=== PATIENT | male | born 1970 | race Caucasian/White ===

== ENCOUNTER → 2016-08-15 | Outpatient (CLI) | payer OTHER ==
--- NOTE | 2016-08-15 16:20 | REP ---
Bilateral inguinal sonography: History: Question inguinal hernia. Findings: The inguinal canal and inguinal soft-tissue ultrasound are performed bilaterally with and without Valsalva. Small hernias containing mesenteric fat are felt to be present bilaterally. These reduce with respiration. The right-sided inguinal canal increases from 9.5 to 12 mm with Valsalva. The left-sided canal increases from 7 to 9. Impression: Findings consistent with very small bilateral inguinal hernias containing abdominal fat. Reducible. No adenopathy cyst or mass seen. Signed by Robert Turcios MD 08/15/2016 07:29 P
--- NOTE | 2016-08-15 16:24 | REP ---
Scrotal sonography: History: 2 cm firm mass in the superior left scrotum. Findings: There is no evidence of intratesticular mass on either side. Right testis measures 4.3 x 2.3 x 3.1 cm. The left testis measures 3.9 x 2.2 x 3.5 cm. There are multiple left-sided epididymal cysts, the largest of which is fairly large measuring of 5.0 x 3.5 x 5.5 cm. There is a intratesticular cyst at the lower pole on the left measuring 0.2 cm in greatest diameter. No hydrocele is seen. Doppler flow is normal to both testes. Resistive index on the right is 0.58 and that on the left as 0.500. Impression: 5.5 cm epididymal cyst in the left epididymis. No other significant abnormality. Signed by Robert Turcios MD 08/15/2016 07:29 P
== END | disposition home or self-care (01) ==
LOC: M RAD 14:57
PROVIDERS: ATTEND Family Medicine
DX: N50.3 Cyst of epididymis (principal); K40.90 Unilateral inguinal hernia, without obstruction or gangrene, not specified as recurrent

== ENCOUNTER → 2016-08-16 | Outpatient (REF) | payer OTHER ==
[2016-08-16 19:25] LABS: ANION GAP 7 MEQ/L (8-16); BLOOD UREA NITROGEN 20 MG/DL (7-18); CALCIUM LEVEL 8.8 MG/DL (8.5-10.1); CARBON DIOXIDE LEVEL 29 MEQ/L (21-32); CHLORIDE LEVEL 107 MEQ/L (98-107); CHOLESTEROL LEVEL 229 MG/DL (<200); CREATININE FOR GFR 1.18 MG/DL (0.70-1.30); GLOMERULAR FILTRATION RATE > 60.0 (>60); GLUCOSE, FASTING 94 MG/DL (70-105); POTASSIUM SERUM 4.7 MEQ/L (3.5-5.1); SODIUM LEVEL 143 MEQ/L (136-145); TRIGLYCERIDES LEVEL 186 MG/DL (<150)
== END | disposition home or self-care (01) ==
LOC: M SFHCLERA 09:10
PROVIDERS: ATTEND Family Medicine
DX: Z00.00 Encounter for general adult medical examination without abnormal findings (principal)

== ENCOUNTER → 2016-08-22 | Outpatient (REF) | payer OTHER | END | disposition home or self-care (01) | LOC: M SFHCPLAZ 11:26 | PROVIDERS: ATTEND Family Medicine | DX: L72.0 Epidermal cyst (principal) ==

== ENCOUNTER → 2016-08-29 | Outpatient (REF) | payer OTHER ==
[~2016-08-29] MED LIST: BACT800T5 PO; FLUT1LOT EX; FLUTISP; NAPR500T2 PO; PERCOCET PO; TERB250T57 PO
[2016-08-29 11:43] LABS: MEAN CORPUSCULAR HEMOGLOBIN 30.7 pg (27.0-33.0); MEAN CORPUSCULAR HGB CONC 33.3 g/dl (32.0-36.5); MEAN CORPUSCULAR VOLUME 92.2 fl (80.0-96.0); RED CELL DISTRIBUTION WIDTH 12.3 % (11.5-14.5); WHITE BLOOD COUNT 4.3 K/mm3 (4.0-10.0)
[2016-08-29 11:45] LABS: INR 0.95
[2016-08-29 12:00] LABS: ANION GAP 9 MEQ/L (8-16); BLOOD UREA NITROGEN 14 MG/DL (7-18); CALCIUM LEVEL 8.9 MG/DL (8.5-10.1); CARBON DIOXIDE LEVEL 28 MEQ/L (21-32); CHLORIDE LEVEL 104 MEQ/L (98-107); CREATININE FOR GFR 1.19 MG/DL (0.70-1.30); GLOMERULAR FILTRATION RATE > 60.0 (>60); GLUCOSE, FASTING 112 MG/DL (70-105); POTASSIUM SERUM 4.3 MEQ/L (3.5-5.1); SODIUM LEVEL 141 MEQ/L (136-145)
== END | disposition home or self-care (01) ==
LOC: M LABSMT 11:09
PROVIDERS: ATTEND Nurse Practitioner Women's Health
DX: Z01.812 Encounter for preprocedural laboratory examination (principal); N50.3 Cyst of epididymis

== ENCOUNTER → 2016-09-02 | Day surgery (SDC) | payer OTHER ==
[~2016-09-02] VITALS: Ht 175.3 cm; Wt 82.6 kg
[~2016-09-02] MED LIST changes: +BACTRIM 160MG/800MG DS TAB PO SCH; +BUPIVACAINE HCL 0.25% 30 ML VIAL As Ordered ONE; +BUPIVACAINE HCL 0.25% 30 ML VIAL XX ONE; +KETOROLAC 60 MG/2 ML VIAL (J1885) As Ordered ONE; +LIDOCAINE 2% INJ 100 MG/5 ML SDV (FOR ANES.) As Ordered ONE; +LR 1,000 ML IV SCH; +MIDAZOLAM INJ 2 MG/2 ML VIAL (J2250) As Ordered ONE; +ONDANSETRON 4MG/2ML VIAL (J2405) As Ordered ONE; +ONDANSETRON 4MG/2ML VIAL (J2405) IV PRN; +PERCOCET 5MG/325MG TAB PO PRN; +PROPOFOL 200 MG/20 ML VIAL As Ordered ONE; +fentaNYL 100 MCG/2 ML INJECTION (J3010) As Ordered ONE; +fentaNYL 100 MCG/2 ML INJECTION (J3010) IV PRN
[2016-09-02 14:56] VITALS: BP 124/78
--- NOTE | 2016-09-03 04:36 | RO ---
DATE OF PROCEDURE: 09/02/2016 PREOPERATIVE DIAGNOSIS: Left epididymal cyst. POSTOPERATIVE DIAGNOSIS: Left epididymal cyst, plus hydrocele. SURGERY PERFORMED: Left hydrocele repair, plus excision of left epididymal cyst. SURGEON: Uday Forde MD PULL WORKER: None. ANESTHESIA: General. FINDINGS: Left hydrocele, plus left epididymal cyst. COMPLICATIONS: None. ESTIMATED BLOOD LOSS: N/A. HISTORY OF PRESENT ILLNESS: 46-year-old male patient with a left epididymal cyst on ultrasound and on palpation. The patient actually has consented for a left epididymal cyst excision. PROCEDURE DESCRIPTION: With patient under general anesthesia in supine position after prepping and draping the area of concern, which included the entire genitalia and abdomen, we started by doing an incision with a cold knife #15 blade. A transverse incision in the left hemiscrotal sac for about 4 cm in length. Through this incision with electric Bovie cautery, we opened the scrotal wall on the left hemiscrotal sac. We then preceded to actually open longitudinally the tunic vaginalis and then actively extracted the fluid. The patient had some hydrocele of about 50 mL. We then preceded to avert the tunic vaginalis to prevent the recurrence of hydrocele with #3-0 chromic in a running fashion. We then preceded to actively dissect the epididymal cyst. It was a very large cyst of about 7 cm in diameter. For this reason, we actively dissected with cuticle scissors and the cyst was excised completely and sent for permanent pathology analysis. We fulgurated the bleeding vessels and placed Marcaine 0.25%, lidocaine 2%, a total of 5 mL in the spermatic cord and dropped the kidney inside the scrotal sac. We closed the scrotal sac and scrotal wall in two layers with #3-0 chromic in a running fashion. The scrotal skin also with #3-0 chromic in a running fashion. We applied bacitracin cream, plus scrotal support. PLAN: The patient will go home today with antibiotic, pain medication. Followup at [facility] in about 2 weeks. DEMETRIUS
== END | disposition home or self-care (01) ==
LOC: M SDC 10:23
PROVIDERS: ATTEND Urology
DX: N50.3 Cyst of epididymis (principal); N43.3 Hydrocele, unspecified; K21.9 Gastro-esophageal reflux disease without esophagitis; Z79.899 Other long term (current) drug therapy
CPT/HCPCS: 54840; 55060; 88305; J0690; J1885; J2250; J2405; J3010

== ENCOUNTER → 2016-09-04 | Outpatient (REF) | payer OTHER ==
[~2016-09-04] MED LIST changes: -BACTRIM 160MG/800MG DS TAB PO SCH; -BUPIVACAINE HCL 0.25% 30 ML VIAL As Ordered ONE; -BUPIVACAINE HCL 0.25% 30 ML VIAL XX ONE; -KETOROLAC 60 MG/2 ML VIAL (J1885) As Ordered ONE; -LIDOCAINE 2% INJ 100 MG/5 ML SDV (FOR ANES.) As Ordered ONE; -LR 1,000 ML IV SCH; -MIDAZOLAM INJ 2 MG/2 ML VIAL (J2250) As Ordered ONE; -ONDANSETRON 4MG/2ML VIAL (J2405) As Ordered ONE; -ONDANSETRON 4MG/2ML VIAL (J2405) IV PRN; -PERCOCET 5MG/325MG TAB PO PRN; -PROPOFOL 200 MG/20 ML VIAL As Ordered ONE; -fentaNYL 100 MCG/2 ML INJECTION (J3010) As Ordered ONE; -fentaNYL 100 MCG/2 ML INJECTION (J3010) IV PRN
== END ==
LOC: M SFHCPLAZ 15:44
PROVIDERS: ATTEND Dermatology
DX: L82.1 Other seborrheic keratosis (principal)

== ENCOUNTER → 2016-09-29 | Outpatient (REF) | payer OTHER | LOC: M SFHCLERA 12:41 | PROVIDERS: ATTEND Nurse Practitioner Family | DX: Z53.8 Procedure and treatment not carried out for other reasons (principal) ==

== ENCOUNTER 2018-04-23 20:46 | Emergency (ER) | payer BC, MEDICAID, OTHER | END 2018-04-24 00:19 | disposition left against medical advice (07) | LOC: M ED 04-24 00:19 | DX: R55 Syncope and collapse (principal); Z53.21 Procedure and treatment not carried out due to patient leaving prior to being seen by health care provider ==

== ENCOUNTER → 2018-08-25 | Outpatient (CLI) | payer BC, OTHER ==
[~2018-08-25] MED LIST changes: +NAPR-885 PO; -NAPR500T2 PO; +TERB250T12 PO; -TERB250T57 PO
--- NOTE | 2018-08-25 13:11 | REP ---
Right knee five views : There is no fracture or dislocation. Mineralization and joint spaces are normal. There are no calcifications or foreign bodies. Impression: Negative right knee . Electronically Signed by Ranulfo Eddy MD 08/25/2018 01:04 P
--- NOTE | 2018-08-25 13:12 | REP ---
Left wrist four views : There is no fracture or dislocation. Mineralization and joint spaces are normal. There are no calcifications or foreign bodies. Impression: Negative left wrist . Electronically Signed by Ranulfo Eddy MD 08/25/2018 01:04 P
== END ==
LOC: M LRY 12:42
PROVIDERS: ATTEND Physician Assistant Medical
DX: S89.91XA Unspecified injury of right lower leg, initial encounter (principal); S69.92XA Unspecified injury of left wrist, hand and finger(s), initial encounter; W19.XXXA Unspecified fall, initial encounter; Y92.9 Unspecified place or not applicable

== ENCOUNTER → 2019-03-25 | Outpatient (CLI) | payer BC ==
--- NOTE | 2019-03-25 15:03 | REP ---
SCROTAL ULTRASOUND: COMPARISON: 08/15/2016 Real-time sonographic evaluation of the scrotum and contents performed. Testicles are homogeneous in echotexture with no mass or torsion, right testicle measuring 4.5 x 2.5 x 3.1 cm and left testicle 4.7 x 2.4 x 2.9 cm. Resistive index right testicle 0.54 and left testicle 0.62. Prominent cyst in the left epididymis contains debris and measures 6.9 x 3.8 x 4.7 cm. Another smaller cyst measures 2.5 x 1.1 x 2.1 cm. IMPRESSION: No testicular mass or torsion. Two dominant cysts left epididymis as discussed above. Electronically Signed by Ranulfo Rodriguez MD 03/25/2019 03:20 P
== END ==
LOC: M RAD 12:27
PROVIDERS: ATTEND Family Medicine
DX: N50.3 Cyst of epididymis (principal)

== ENCOUNTER → 2019-04-14 | Outpatient (CLI) | payer BC ==
[~2019-04-14] MED LIST changes: +FLUTISP NARES
[2019-04-14 10:55] LABS: HEMATOCRIT 41.8 % (42.0-52.0); HEMOGLOBIN 13.6 g/dl (13.5-17.5); MEAN CORPUSCULAR HEMOGLOBIN 30.9 pg (27.0-33.0); MEAN CORPUSCULAR HGB CONC 32.5 g/dl (32.0-36.5); PLATELET COUNT, AUTOMATED 140 10^3/uL (150-450); WHITE BLOOD COUNT 4.1 10^3/uL (4.0-10.0)
[2019-04-14 11:06] LABS: INR 0.94; PARTIAL THROMBOPLASTIN TIME 26.3 SECONDS (25.0-38.4); PROTHROMBIN TIME 12.3 SECONDS (11.8-14.0)
[2019-04-14 11:21] LABS: CALCIUM LEVEL 8.7 MG/DL (8.5-10.1); CREATININE FOR GFR 1.4 MG/DL (0.70-1.30); GLOMERULAR FILTRATION RATE 57.3 (>60); POTASSIUM SERUM 4.3 MEQ/L (3.5-5.1)
--- NOTE | 2019-04-14 13:58 | REP ---
Chest x-ray: Two views. History: Epididymal cyst. . Comparison study: No comparison study . Findings: The lungs are well inflated and free of infiltrate. The pleural angles are sharp. The heart size is normal. Pulmonary vasculature is not increased. No significant bony abnormality is seen. Impression: Negative chest x-ray. Electronically Signed by Robert Turcios MD 04/14/2019 01:50 P
--- NOTE | 2019-04-15 23:15 | ECGEPIP ---
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 Prior on 04/23/18 at 21:32 Electronically Signed on 04-15-2019 23:15:18 EDT by Henrique Bailey
== END ==
LOC: M LAB 09:52
PROVIDERS: ATTEND Nurse Practitioner Women's Health
DX: Z01.818 Encounter for other preprocedural examination (principal); R00.1 Bradycardia, unspecified; N50.3 Cyst of epididymis

== ENCOUNTER 2019-04-15 11:23 | Day surgery (SDC) | payer BC ==
[~2019-04-15] VITALS: Ht 172.7 cm; Wt 80.2 kg
[~2019-04-15 11:23] MED LIST changes: +LIDOCAINE 1% MDV 20ML VIAL SQ PRN; +LR 1,000 ML IV ONE; +ceFAZolin SOD 2 GM in IV 1 EA IV ONE
[2019-04-15] MEDS ORDERED: MIDAZOLAM INJ 2 MG/2 ML VIAL (J2250) As Ordered ONE (15:02)
[2019-04-15] MEDS ORDERED: ONDANSETRON 4MG/2ML VIAL (J2405) As Ordered ONE ×2 (15:03→18:45)
[2019-04-15] MEDS ORDERED: LIDOCAINE 2% INJ 100 MG/5 ML SDV (FOR ANES.) As Ordered ONE (15:03)
[2019-04-15] MEDS ORDERED: dexameTHASONE 4 MG/ML 1ML VIAL (J1100) As Ordered ONE (15:03)
[2019-04-15] MEDS ORDERED: fentaNYL 100 MCG/2 ML INJECTION (J3010) As Ordered ONE (15:03)
[2019-04-15] MEDS ORDERED: PROPOFOL 200 MG/20 ML VIAL As Ordered ONE ×2 (15:03→18:34)
[2019-04-15] MEDS ORDERED: BACITRACIN OINT 30GM As Ordered ONE (16:19)
[2019-04-15] MEDS ORDERED: BUPIVACAINE HCL 0.25% 30 ML VIAL As Ordered ONE (16:19)
[2019-04-15] MEDS ORDERED: LIDOCAINE 1% SDV INJ 30 ML VIAL As Ordered ONE (16:19)
[2019-04-15] MEDS ORDERED: KETOROLAC 60 MG/2 ML VIAL (J1885) As Ordered ONE (16:51)
[2019-04-15] MEDS ORDERED: ePHEDrine SULFATE 25 MG/5 ML(5MG/ML) SYRINGE As Ordered ONE (17:30)
[2019-04-15] MEDS ORDERED: METOCLOPRAMIDE INJ 10MG/2ML VIAL (J2765) As Ordered ONE (18:58)
[2019-04-15] MEDS ORDERED: fentaNYL 100 MCG/2 ML INJECTION (J3010) IV PRN (19:00)
[2019-04-15] MEDS ORDERED: ONDANSETRON 4MG/2ML VIAL (J2405) IV PRN (19:00)
[2019-04-15] MEDS ORDERED: oxyCODONE 5MG TAB PO PRN (19:00)
[2019-04-15] MEDS ORDERED: PERCOCET 5MG/325MG TAB PO PRN (19:00)
[2019-04-15] MEDS ORDERED: METOCLOPRAMIDE INJ 10MG/2ML VIAL (J2765) IV PRN (19:15)
[2019-04-15] MEDS ORDERED: PROMETHAZINE INJ 25 MG/ML VIAL (J2550) IV PRN (19:30)
[2019-04-15 20:55] VITALS: BP 128/68
--- NOTE | 2019-04-17 15:01 | RO ---
DATE OF PROCEDURE: 04/15/2019 PREPROCEDURE DIAGNOSIS: Left epididymal cyst. POSTPROCEDURE DIAGNOSIS: Left epididymal cyst. PROCEDURE: Removal of left epididymal cyst. SURGEON: Aquilino Mckinley MD COVER MARKER: None. ANESTHESIA: General. OPERATIVE INDICATIONS: This is a 48-year-old male who has a history of a left epididymal cyst, which was treated approximately 2 years ago and then he had a recurrence. He now has a larger cyst, as well as a smaller one adjacent to it. He was brought to the operating room today for the above listed procedure. DESCRIPTION OF PROCEDURE: The patient was brought to the operating room and general anesthesia was induced. Prophylactic antibiotics were infused. He was then placed in the supine position in preparation for the above listed procedure. At this point, an approximately 3-4 cm transverse incision was made over his previous scar. We dissected down through the scrotal wall layers and then the testicle was delivered out. At this point, I began dissecting out the epididymal cyst. Of note, the testicle appeared normal. The epididymal cyst was then dissected out and while doing so, the cyst was punctured and clear fluid drained out. I then dissected out the majority of the cyst wall to be sent for pathologic analysis. The remainder of the cyst wall that was still attached to the testicle was then cauterized and fulgurated to help prevent it from reforming. Once this was done, I checked for hemostasis and any areas of bleeding were controlled with electrocautery. Of note, during the procedure, there was no damage to the vas deferens or any of the testicle blood supply. Once satisfied with hemostasis, the wound was irrigated out and the testicle was then placed back in its normal anatomic position. The scrotal wall was closed first with a running #2-0 chromic suture to close the dartos. The skin was then closed with interrupted #3-0 Vicryl suture. Local anesthetic was then applied followed by dressings. This marked the conclusion of the procedure. The patient was then awakened from anesthesia and transferred to the recovery room in stable condition. Estimated blood loss: 5 mL. Complications: None. Specimens: Left epididymal cyst. PLAN: The patient will followup in the clinic in a few weeks for a postoperative visit. DEMETRIUS
== END 2019-04-15 21:00 | disposition home or self-care (01) ==
LOC: M SDC 11:23
PROVIDERS: ATTEND Urology
DX: N50.3 Cyst of epididymis (principal); K21.9 Gastro-esophageal reflux disease without esophagitis
CPT/HCPCS: 54830; 88305; J0690; J1100; J1885; J2250; J2405; J2765; J3010

== ENCOUNTER → 2020-01-18 | Outpatient (REF) | payer SELFPAY ==
[~2020-01-18] MED LIST changes: -LIDOCAINE 1% MDV 20ML VIAL SQ PRN; -LR 1,000 ML IV ONE; -ceFAZolin SOD 2 GM in IV 1 EA IV ONE
[2020-01-18 11:50] LABS: BILIRUBIN,TOTAL 0.7 MG/DL (0.2-1.0); CALCIUM LEVEL 9.2 MG/DL (8.5-10.1); CREATININE FOR GFR 1.39 MG/DL (0.70-1.30); GLOMERULAR FILTRATION RATE 57.6 (>56); POTASSIUM SERUM 5.2 MEQ/L (3.5-5.1); TOTAL PROTEIN 7.5 GM/DL (6.4-8.2)
[2020-01-18 13:33] LABS: HEMOGLOBIN A1c 5.8 %
== END ==
LOC: M SFHCPLAZ 08:32
PROVIDERS: ATTEND Physician Assistant Medical
DX: Z00.00 Encounter for general adult medical examination without abnormal findings (principal)